=== PATIENT | female | born 2000 | race Caucasian/White ===

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

== ENCOUNTER 2020-09-05 08:27 | Observation (INO) | payer OTHER ==
[~2020-09-05] VITALS: Ht 165.1 cm; Wt 93.0 kg
[~2020-09-05 08:27] MED LIST changes: +CEPH500 PO; +IBUP600 PO; +Pyridium100 MG PO
[2020-09-05 09:37] LABS: Source, Urine Clean Catch
[2020-09-05 09:49] LABS: BASOPHILS ABSOLUTE AUTO 0.04 K/mm3 (0.00-0.23); BASOPHILS PERCENT AUTO 0 % (0-2); EOSINOPHILS ABSOLUTE AUTO 0.15 K/mm3 (0.00-0.68); EOSINOPHILS PERCENT AUTO 1 % (0-6); Hematocrit 40.3 % (33.0-51.0); Hemoglobin 13.7 g/dL (11.5-16.0); IMMATURE GRAN ABSOLUTE AUTO 0.04 K/mm3 (0.00-0.10); IMMATURE GRAN PERCENT AUTO 0 % (0-1); LYMPHOCYTES ABSOLUTE AUTO 2.67 K/mm3 (0.84-5.20); LYMPHOCYTES PERCENT AUTO 21 % (21-46); MONOCYTES PERCENT AUTO 7 % (4-13); Mean Corpuscular HGB 30.4 pg (26.0-34.0); Mean Corpuscular Volume 89 fL (80-100); Mean Platelet Volume 10.3 fL (9.1-12.4); NEUTROPHILS ABSOLUTE AUTO 9.17 K/mm3 (1.96-9.15); NEUTROPHILS PERCENT AUTO 71 % (41-73); Platelet Count 369 K/mm3 (150-400); RDW Coefficient Variation 11.9 % (11.7-14.2); RDW Standard Deviation 37.7 fL (35.1-46.3); Red Blood Cell Count 4.51 M/mm3 (3.80-5.20); White Blood Cell Count 12.97 K/mm3 (4.00-11.30)
[2020-09-05 09:51] LABS: Appearance, Urine Clear (Clear); Bilirubin, Urine Neg (Neg); Blood, Urine 1+ (Neg); Color, Urine Yellow (P-Yellow); Glucose Qualitative, Urine Neg (Neg); Ketones, Urine Neg (Neg); Leukocyte Esterase, Urine Neg (Neg); Nitrite, Urine Neg (Neg); Protein, Urine Neg (Neg); Urobilinogen, Urine NORM (Normal)
[2020-09-05 10:08] LABS: Alanine Aminotransfer (ALT/SGP 31 U/L (12-78); Albumin, Blood 4.1 g/dL (3.4-5.0); Alk Phos 70 U/L (50-136); Anion Gap 5 mmol/L (6-16); Aspartate Aminotrans (AST/SGOT 14 U/L (12-37); Bilirubin, Total 0.4 mg/dL (0.1-1.0); Blood Urea Nitrogen 12 mg/dL (8-24); Bun/Creatinine Ratio 22.4 (12.0-20.0); CO2, Blood 27 mmol/L (21-32); Chloride, Blood 109 mmol/L (98-108); Creatinine, Blood 0.54 mg/dL (0.40-1.00); Globulin, Blood 4.1 g/dL (2.2-4.0); Glomerular Filtration Rate >60 (60-); Glucose, Blood 101 mg/dL (70-99); Potassium, Blood 3.7 mmol/L (3.5-5.5); Sodium, Blood 141 mmol/L (136-145); Total Protein, Blood 8.2 g/dL (6.4-8.2)
[2020-09-05 10:11] LABS: Bacteria Rare /hpf; Mucus Light (0-Heavy); Red Blood Cells, Urine 0-2 /hpf (0-2); Squamous Epithelial Cells Rare /hpf (Few)
[2020-09-05 13:25] LABS: Influenza A, PCR Negative (NEGATIVE); Influenza B, PCR Negative (NEGATIVE); Resp Syncytial Virus, PCR Negative (NEGATIVE); SARS-Cov-2 (COVID-19) PCR, MMC Negative (NEGATIVE)
--- NOTE | 2020-09-05 14:29 | NUR ---
PT TRANSFERED TO [facility] FROM ER VIA [facility]. History, Chart, Medications and Allergies reviewed before start of procedure. Lungs clear T/O to Auscultation. Patient confirms NPO status and agrees with scheduled surgery. Pre-Op teaching done. Pt verbalizes understanding.
--- NOTE | 2020-09-05 18:07 | NUR ---
PT ARRIVED TO THE UNIT POST OP ALERT AND ORIENTED. SHE REPORTS ABD PAIN AND WAS GIVEN DILAUDID. PT'S MOTHER AT THE BEDSIDE. PT TOLERATING CLEAR LIQUID. VSS. WILL MONITOR UNTIL REPORT TO ONCOMING RN.
--- NOTE | 2020-09-05 19:36 | NUR ---
SHIFT SUMMARY PAIN HAS BEEN MANAGED SINCE PT ARRIVED TO THE ROOM POST OP. PT TOLERATED PO. SHE HAS BEEN OUTSIDE TO SMOKE. PT EDUCATED ABOUT RISKS OF SMOKING. VSS. WILL MONITOR UNTIL REPORT TO ONCOMING RN.
--- NOTE | 2020-09-06 03:52 | NUR ---
SHIFT SUMMARY POD1 LAP APPY, AOX4, PLEASANT. SBA IN THE ROOM. PT EBENEZER REG DIET, DENIES N/V. BT PRESENT HYPOACTIVE LAST NIGHT, MORE ACTIVE THIS MORNING. PT REPORTS PASSING FLATUS. C/O GAS PAIN RADIATING TO R SHOULDER. REQUESTING FOR GAS X, WILL ADDRESS FOR ORDER REQUEST W/ AM NURSE. PT DENIES BM. VOIDING ADEQUATELY. VSS. ABD LAP SITE X2 ARE CDI. HAD TO CHANGE BANDAID/DRESSING ON THE MID LAP SITE WITH GAUZE, MEDIUM SIZE SEROSANG DRAINAGE. IV ON R AC INFUSING FLUIDS, ABX ADMINISTERED. PAIN MANAGED W/ 1 PERCOCET. CALL LIGHT W/ IN REACH.
--- NOTE | 2020-09-06 06:33 | NUR ---
POD 1 S/P LAP APPY. PT VSS T/O NIGHT. INCISIONS W/SCANT AMT SS DRNG. PT EBENEZER PO, NO N/V, IS VOIDING URINE W/O DIFFICULTY. PAIN MGD W/PO PAIN MEDS. PT AMB INDEP IN ROOM. ABX CONT PER ORDERS.
--- NOTE | 2020-09-06 09:13 | NUR ---
R SHOULDER PAIN PT HAS COMPLAINED OF R SHOULDER PAIN AND PAIN UNDER HER RIBS ON THE RIGHT SIDE. PT WAS EDUCATED ABOUT GAS THAT CAN BE TRAPPED IN THE ABD CAVITY AFTER LAPAROSCOPIC SURGERY. PT ALSO COMPLAINED OF PAIN TO THE RIGHT SHOULDER AND CHEST WITH DEEP BREATHING AND REPORTED FEELING SHORT OF BREATH. PT ENCOURAGED TO DEEP BREATH AND AMBULATE. DR. MARTÍNEZ NOTIFIED OF PAIN WITH DEEP BREATHING AND SHORTNESS OF BREATH. PT'S RR EVEN AND UNLABORED. VSS. O2 SATURATION 99-100% ON RA.
[2020-09-06] MEDS ORDERED: OXYC5 PO (13:53)
--- NOTE | 2020-09-06 14:36 | NUR ---
DISCHARGE PT WAS PROVIDED WITH DISCHARGE INSTRUCTIONS BY CHRISTIAN BENSON. PAIN MANAGED AT TIME OF DISCHARGE. PT TOLERATING PO, PASSING FLATUS AND ABLE TO AMBULATE. PT DISCHARGED AT APPROXIMATELY 1420.
== END 2020-09-06 14:20 | disposition home or self-care (01) ==
LOC: ER 08:27 → SURS 08:28 → ER 13:32 → SURS 13:32
PROVIDERS: Emergency Medicine; Physician Assistant; ADMIT Surgery
DX: K35.80 Unspecified acute appendicitis (principal); F17.210 Nicotine dependence, cigarettes, uncomplicated; L30.9 Dermatitis, unspecified; Z20.828 Contact with and (suspected) exposure to other viral communicable diseases
CPT/HCPCS: 0241U; 36415; 71260; 74177; 80053; 81001; 81025; 83690; 85025; 88304; 96374-59; 96375; 99285-25; A9270-GY; G0378; J0295; J0694; J1100; J1170; J1885; J2250; J2405; J2704; J3010; J7030; J7120; Q9967

== ENCOUNTER 2022-08-22 07:01 | Emergency (ER) | payer OTHER ==
[~2022-08-22] VITALS: Ht 165.1 cm; Wt 90.7 kg
[~2022-08-22 07:01] MED LIST changes: +OXYC5 PO
== END 2022-08-22 08:52 | disposition home or self-care (01) ==
LOC: ER 07:01
DX: R51.9 Headache, unspecified (principal); F17.210 Nicotine dependence, cigarettes, uncomplicated; F14.10 Cocaine abuse, uncomplicated
CPT/HCPCS: A9270; J1100; J1885

== ENCOUNTER 2022-08-31 00:30 | Emergency (ER) | payer OTHER ==
[2022-08-31] MEDS ORDERED: ACET325 PO (01:04)
[2022-08-31] MEDS ORDERED: IBUP600 (01:04)
[2022-08-31] MEDS ORDERED: ONDA4 PO (03:41)
== END 2022-08-31 03:58 | disposition home or self-care (01) ==
DX: K80.70 Calculus of gallbladder and bile duct without cholecystitis without obstruction (principal); F17.210 Nicotine dependence, cigarettes, uncomplicated

== ENCOUNTER 2023-06-17 12:31 | Emergency (ER) | payer OTHER ==
[~2023-06-17] VITALS: Ht 165.1 cm; Wt 81.7 kg
[~2023-06-17 12:31] MED LIST changes: +ACET325 PO; +IBUP600; +Norco 5-325 Ta1 EACH PO; +ONDA4 PO
[2023-06-17 12:46] VITALS: BP 153/87
[2023-06-17] MEDS ORDERED: Triamcinolone A15 G3 TOP (13:28)
== END 2023-06-17 13:38 | disposition home or self-care (01) ==
LOC: ER 12:31
DX: L30.9 Dermatitis, unspecified (principal); F17.210 Nicotine dependence, cigarettes, uncomplicated
CPT/HCPCS: 99282

== ENCOUNTER 2023-07-13 16:43 | Emergency (ER) | payer OTHER ==
[~2023-07-13] VITALS: Ht 165.1 cm; Wt 81.7 kg
[~2023-07-13 16:43] MED LIST changes: +ACET500 PO; +IBUP200 PO; +Triamcinolone A15 G3 TOP
[2023-07-13 17:00] VITALS: BP 138/90
== END 2023-07-13 18:36 | disposition left against medical advice (07) ==
LOC: ER 16:43
DX: S09.90XA Unspecified injury of head, initial encounter (principal); W22.03XA Walked into furniture, initial encounter; Z53.21 Procedure and treatment not carried out due to patient leaving prior to being seen by health care provider
CPT/HCPCS: 70450

== ENCOUNTER 2023-07-29 16:30 | Emergency (ER) | payer OTHER ==
[~2023-07-29] VITALS: Ht 165.1 cm; Wt 81.7 kg
[2023-07-29 16:58] LABS: BASOPHILS ABSOLUTE AUTO 0.02 K/mm3 (0.00-0.23); BASOPHILS PERCENT AUTO 0 % (0-2); EOSINOPHILS ABSOLUTE AUTO 0.09 K/mm3 (0.00-0.68); EOSINOPHILS PERCENT AUTO 1 % (0-6); Hematocrit 43.7 % (33.0-51.0); Hemoglobin 14.8 g/dL (11.5-16.0); IMMATURE GRAN ABSOLUTE AUTO 0.02 K/mm3 (0.00-0.10); IMMATURE GRAN PERCENT AUTO 0 % (0-1); LYMPHOCYTES ABSOLUTE AUTO 0.53 K/mm3 (0.84-5.20); LYMPHOCYTES PERCENT AUTO 6 % (21-46); MONOCYTES ABSOLUTE AUTO 0.43 K/mm3 (0.16-1.47); MONOCYTES PERCENT AUTO 5 % (4-13); Mean Corpuscular HGB 30.3 pg (26.0-34.0); Mean Corpuscular HGB Conc 33.9 g/dL (31.5-36.5); Mean Corpuscular Volume 90 fL (80-100); Mean Platelet Volume 9.6 fL (9.1-12.4); NEUTROPHILS ABSOLUTE AUTO 7.51 K/mm3 (1.96-9.15); NEUTROPHILS PERCENT AUTO 87 % (41-73); Platelet Count 373 K/mm3 (150-400); RDW Coefficient Variation 12.7 % (11.7-14.2); RDW Standard Deviation 41.5 fL (35.1-46.3); Red Blood Cell Count 4.88 M/mm3 (3.80-5.20)
[2023-07-29 17:17] LABS: Albumin, Blood 4.3 g/dL (3.4-5.0); Bilirubin, Total 0.6 mg/dL (0.1-1.0); Calcium, Blood 9.4 mg/dL (8.5-10.1); Creatinine, Blood 0.78 mg/dL (0.40-1.00); Globulin, Blood 4.2 g/dL (2.2-4.0); Total Protein, Blood 8.5 g/dL (6.4-8.2)
[2023-07-29 18:43] LABS: International Normalized Ratio 1.03; Prothrombin Time Results 10.8 Sec (9.7-11.5)
[2023-07-29 19:15] VITALS: BP 107/57
[2023-07-29] MEDS ORDERED: DICY20 PO (19:17)
[2023-07-29] MEDS ORDERED: ONDA4ODT MM (19:17)
[2023-07-29] MEDS ORDERED: FAMO20 PO (19:17)
[2023-07-29] MEDS ORDERED: SUCR1 PO (19:17)
== END 2023-07-29 20:00 | disposition home or self-care (01) ==
LOC: ER 16:30
PROVIDERS: Physician Assistant; Student in an Organized Health Care Education/Training Program
DX: K52.9 Noninfective gastroenteritis and colitis, unspecified (principal); R55 Syncope and collapse; F17.210 Nicotine dependence, cigarettes, uncomplicated
CPT/HCPCS: 74177; 80053; 83690; 84703; 85025; 85610; 96361; 96374-59; 96375; 99284-25; A9270; C9113; J1885; J2405; J3010; J7030; Q9967

== ENCOUNTER 2024-11-25 14:15 | Emergency (ER) | payer OTHER ==
[~2024-11-25] VITALS: Ht 165.1 cm; Wt 97.5 kg
[~2024-11-25 14:15] MED LIST changes: +DICY20 PO; +FAMO20 PO; +ONDA4ODT MM; +SUCR1 PO
[2024-11-25 14:32] VITALS: BP 133/85
[2024-11-25] MEDS ORDERED: Diphth,Pertuss(Acell),Tet Vac 0.5 ML VIAL IM ONE (14:35)
== END 2024-11-25 15:33 | disposition home or self-care (01) ==
LOC: ER 14:15
DX: S81.811A Laceration without foreign body, right lower leg, initial encounter (principal); Z23 Encounter for immunization; F17.210 Nicotine dependence, cigarettes, uncomplicated; Z79.84 Long term (current) use of oral hypoglycemic drugs; Z79.899 Other long term (current) drug therapy; Z88.5 Allergy status to narcotic agent
CPT/HCPCS: 12002; 90471; 90715; 99282-25

== ENCOUNTER 2024-12-03 18:05 | Emergency (ER) | payer OTHER ==
[~2024-12-03] VITALS: Ht 165.1 cm; Wt 95.2 kg
[2024-12-03 18:21] VITALS: BP 143/81
[2024-12-03] MEDS ORDERED: CEPH500 PO (18:25)
== END 2024-12-03 18:29 | disposition home or self-care (01) ==
LOC: ER 18:05
DX: L03.115 Cellulitis of right lower limb (principal); F41.9 Anxiety disorder, unspecified; F17.210 Nicotine dependence, cigarettes, uncomplicated; Z88.5 Allergy status to narcotic agent; Z79.899 Other long term (current) drug therapy
CPT/HCPCS: 99282

== ENCOUNTER 2024-12-14 20:08 | Emergency (ER) | payer OTHER ==
[~2024-12-14] VITALS: Ht 165.1 cm; Wt 97.5 kg
[2024-12-14 20:28] VITALS: BP 164/94
[2024-12-14] MEDS ORDERED: Ketorolac Tromethamine 15mg Vial IM ONE (20:45)
[2024-12-14] MEDS ORDERED: BUPROPION XL150 M1 PO (22:22)
== END 2024-12-14 22:22 | disposition home or self-care (01) ==
LOC: ER 20:08
DX: S60.111A Contusion of right thumb with damage to nail, initial encounter (principal); W23.0XXA Caught, crushed, jammed, or pinched between moving objects, initial encounter; F17.210 Nicotine dependence, cigarettes, uncomplicated; Z88.5 Allergy status to narcotic agent; Z79.899 Other long term (current) drug therapy
CPT/HCPCS: 11740; 73120; 96372-59; 99283-25; J1885

== ENCOUNTER 2025-07-03 04:12 | Emergency (ER) | payer OTHER ==
[~2025-07-03] VITALS: Ht 170.2 cm; Wt 95.2 kg
[~2025-07-03 04:12] MED LIST changes: +BUPROPION XL150 M1 PO
[2025-07-03] MEDS ORDERED: Pantoprazole Sodium 40 MG Injection IV ONE (04:35)
[2025-07-03] MEDS ORDERED: Ondansetron HCl 2 MG / ML 2ML Vial IV ONE (04:35)
[2025-07-03 05:07] LABS: BASOPHILS ABSOLUTE AUTO 0.04 K/mm3 (0.00-0.23); BASOPHILS PERCENT AUTO 1 % (0-2); EOSINOPHILS ABSOLUTE AUTO 0.17 K/mm3 (0.00-0.68); EOSINOPHILS PERCENT AUTO 2 % (0-6); Hematocrit 35.8 % (33.0-51.0); Hemoglobin 12.3 g/dL (11.5-16.0); IMMATURE GRAN ABSOLUTE AUTO 0.02 K/mm3 (0.00-0.10); IMMATURE GRAN PERCENT AUTO 0 % (0-1); LYMPHOCYTES ABSOLUTE AUTO 2.16 K/mm3 (0.84-5.20); LYMPHOCYTES PERCENT AUTO 29 % (21-46); MONOCYTES ABSOLUTE AUTO 0.74 K/mm3 (0.16-1.47); MONOCYTES PERCENT AUTO 10 % (4-13); Mean Corpuscular HGB Conc 34.4 g/dL (31.5-36.5); Mean Corpuscular Volume 84 fL (80-100); NEUTROPHILS ABSOLUTE AUTO 4.30 K/mm3 (1.96-9.15); NEUTROPHILS PERCENT AUTO 58 % (41-73); NRBC ABSOLUTE 0.00 K/mm3 (0.00-0.02); NRBC Auto 0.0 /100 WBC (0.0-0.2); Platelet Count 353 K/mm3 (150-400); RDW Coefficient Variation 12.7 % (11.7-14.2); RDW Standard Deviation 38.5 fL (35.1-46.3)
[2025-07-03 05:36] LABS: Alanine Aminotransfer (ALT/SGP 42.0 U/L (12-78); Albumin, Blood 3.7 g/dL (3.4-5.0); Albumin/Globulin Ratio 1.1 (0.8-1.8); Anion Gap 9.0 mmol/L (3-11); Aspartate Aminotrans (AST/SGOT 25.0 U/L (12-37); Bilirubin, Total 0.3 mg/dL (0.1-1.0); Blood Urea Nitrogen 14.0 mg/dL (8-24); CO2, Blood 24.0 mmol/L (21-32); Calcium, Blood 8.9 mg/dL (8.5-10.1); Chloride, Blood 107.0 mmol/L (98-108); Creatinine, Blood 0.89 mg/dL (0.40-1.00); Globulin, Blood 3.5 g/dL (2.2-4.0); Glucose, Blood 104.0 mg/dL (70-99); Potassium, Blood 3.6 mmol/L (3.5-5.5); Sodium, Blood 136.0 mmol/L (136-145); Total Protein, Blood 7.2 g/dL (6.4-8.2)
[2025-07-03] MEDS ORDERED: NS 1,000 ML IV SCH (07:10)
[2025-07-03 07:12] VITALS: BP 138/68
[2025-07-03 07:19] LABS: Source, Urine Clean Catch
[2025-07-03 07:26] LABS: Bilirubin, Urine Neg (Neg); Color, Urine Yellow (P-Yellow); Glucose Qualitative, Urine Neg (Neg); Ketones, Urine Neg (Neg); Leukocyte Esterase, Urine 1+ (Neg); Protein, Urine Neg (Neg); Specific Gravity, Urine 1.010 (1.003-1.022); Urobilinogen, Urine NORM (Normal)
[2025-07-03 07:35] LABS: Red Blood Cells, Urine Not Seen /hpf (0-2); White Blood Cells, Urine 0-2 /hpf (0-5)
[2025-07-03] MEDS ORDERED: ONDA4ODT MM (07:50)
== END 2025-07-03 08:00 | disposition home or self-care (01) ==
LOC: ER 04:12
PROVIDERS: Emergency Medicine
DX: R10.13 Epigastric pain (principal); R11.2 Nausea with vomiting, unspecified; K76.0 Fatty (change of) liver, not elsewhere classified; F17.210 Nicotine dependence, cigarettes, uncomplicated; Z90.49 Acquired absence of other specified parts of digestive tract; Z88.5 Allergy status to narcotic agent; Z79.899 Other long term (current) drug therapy
CPT/HCPCS: 74177; 80053; 81001; 81025; 83605; 83690; 85025; 87086; 96361; 96374-59; 96375; 99284-25; J2405; J2470; J7030; Q9967